=== PATIENT | male | born 1945 | race Caucasian/White ===

== ENCOUNTER 2017-03-04 21:49 | Emergency (ER) | payer OTHER ==
[2017-03-04 22:11] VITALS: BP 146/83; PULSE 68; TEMP 97.7; BMI 29.2
[2017-03-05] MEDS ORDERED: OXYCODONE/APAP 5/325MG COMBO TABLET PO ONE (00:12)
[2017-03-05] MEDS ORDERED: KETOROLAC TROMETHAMINE 30 MG/1 ML VIAL IM ONE (00:12)
--- NOTE | 2017-03-05 00:12 | PDOC ---
History of Present Illness - General History Source: Patient Exam Limitations: No Limitations - History of Present Illness Initial Comments: 03/05/17 00:37 The patient is a 71 year old male with significant history of hypertension, hyperlipidemia, CAD s/p stents, gout on Allopurinol, history of left elbow bursitis, who presents to the ED complaining of approximately 5 days of left elbow pain and swelling. His left elbow pain is burning and worse with movement. He denies any preceding trauma but does endorse lifting a large watermelon prior to the onset of his symptoms. He also complains of appproxiamtely 1 week of mild lower back pain after lifting a water melon. No fever or chills. NO cough, cp, sob, numnbess/tingling/weakness, urinary or bowel incontinence. No nausea, vomiting, or diarrhea. <Love Thorne - Last Filed: 03/05/17 00:37> <Alex Srivastava - Last Filed: 03/05/17 01:59> - General Chief Complaint: Pain Stated Complaint: LT ELBOW PAIN Time Seen by Provider: 03/04/17 23:39 Past History <Love Thorne - Last Filed: 03/05/17 00:37> - Past Medical History Cardiac Disorders: Yes Diabetes: Yes HTN: Yes - Surgical History Cardiac Surgery: Yes (stent x 4 20 years ago) - Psycho/Social/Smoking Cessation Hx Suicidal Ideation: No Smoking History: Never smoked <Alex Srivastava - Last Filed: 03/05/17 01:59> - Past Medical History Allergies/Adverse Reactions: Allergies Allergy/AdvReac Type Severity Reaction Status Date / Time No Known Allergies Allergy Verified 03/04/17 22:11 Home Medications: Ambulatory Orders Unobtainable [Unobtainable] 03/04/17 Review of Systems - Review of Systems Able to Perform ROS?: Yes Comments:: 03/05/17 00:38 CONSTITUTIONAL: No reported: Fever, Chills, Diaphoresis, Generalized Weakness, Malaise, Loss of Appetite HEENT: No reported: Rhinorrhea, Nasal Congestion, Throat Pain, Throat Swelling, Difficulty Swallowing, Mouth Swelling, Ear Pain, Eye Pain, Visual Changes CARDIOVASCULAR: No reported: Chest Pain, Syncope, Palpitations, Irregular Heart Rate, Lightheadedness, Peripheral Edema RESPIRATORY: No reported: Cough, Shortness of Breath, SOB with Exertion, Orthopnea, Wheezing , Stridor, Hemoptysis GASTROINTESTINAL: No reported: Abdominal pain, Abdominal Distension, Nausea, Vomiting, Diarrhea, Constipation, Melena, Hematochezia GENITOURINARY: No reported: Dysuria, Frequency, Urgency, Hesitancy, Flank Pain, Genital Pain MUSCULOSKELETAL: Reported: Left elbow pain, swelling. Back pain No reported: Myalgia, Neck Pain SKIN: No reported: Rash, Itching, Pallor HEMEATOLOGIC/IMMUNOLOGIC: No reported: Easy Bleeding, Easy Bruising, Lymphadenopathy, Frequent infections ENDOCRINE: No reported: Unexplained Weight Gain, Unexplained Weight Loss, Heat Intolerance , Cold Intolerance NEUROLOGIC: No reported: Headache, Focal Weakness, Paresthesias, Vertigo, Lightheadedness, Unsteady Gait, Seizure, Mental Status Changes, Incontinence PSYCHIATRIC: No reported: Anxiety, Depression <Love Thorne - Last Filed: 03/05/17 00:37> *Physical Exam - Vital Signs Last Vital Signs Temp Pulse Resp BP Pulse Ox 97.7 F 68 18 146/83 99 03/04/17 22:07 03/04/17 22:07 03/04/17 22:07 03/04/17 22:07 03/04/17 22:07 - Physical Exam Comments: 03/05/17 00:38 GENERAL: The patient is awake, alert, and fully oriented, Nontoxic - in no acute distress. HEAD: Normocephalic, atraumatic. EYES: extraocular movements intact, sclera anicteric, conjunctiva clear. ENT: Normal voice, Moist mucous membranes. NECK: Normal range of motion, supple LUNGS: Breath sounds equal, clear to auscultation bilaterally. No wheezes, no rhonchi, no rales. HEART: Regular rate and rhythm, normal S1 and S2 without murmur, rub or gallop. ABDOMEN: Soft, nontender, normoactive bowel sounds. No guarding, no rebound. . No CVA tenderness EXTREMITIES: ROM of L elbow approx 80 degrees before limited by pain, focal tenderness/swelling on L lolecranon/bursa. No warmth, erythema. BACK: No focal tenderness in midline or paraspinally. NEUROLOGICAL: No facial assymetry, Normal speech, PSYCH: Normal mood, normal affect. SKIN: Warm, Dry, normal turgor, <Herchek,Love - Last Filed: 03/05/17 00:37> - Vital Signs Last Vital Signs Temp Pulse Resp BP Pulse Ox 97.7 F 68 18 146/83 99 03/04/17 22:07 03/04/17 22:07 03/04/17 22:07 03/04/17 22:07 03/04/17 22:07 <Alex Srivastava - Last Filed: 03/05/17 01:59> ED Treatment Course - LABORATORY CBC & Chemistry Diagram: 03/05/17 00:10 03/05/17 00:10 - ADDITIONAL ORDERS Additional order review: 03/05/17 00:10 RBC 5.27 MCV 81.4 MCHC 31.8 L RDW 14.1 MPV 9.2 Neutrophils % 75.4 Lymphocytes % 15.3 Monocytes % 7.5 Eosinophils % 1.3 Basophils % 0.5 - Medications Given in the ED: ED Medications Discontinued Medications Generic Name Dose Route Start Last Admin Trade Name Carroll PRN Reason Stop Dose Admin Ketorolac Tromethamine 30 mg 03/05/17 00:12 03/05/17 00:25 Toradol Injection - IM 03/05/17 00:13 30 mg ONCE ONE Administration Oxycodone/Acetaminophen 1 combo 03/05/17 00:12 03/05/17 00:25 Percocet 5/325 - PO 03/05/17 00:13 1 combo ONCE ONE Administration <Love Thorne - Last Filed: 03/05/17 00:37> - LABORATORY CBC & Chemistry Diagram: 03/05/17 00:10 03/05/17 00:10 <Alex Srivastava - Last Filed: 03/05/17 01:59> Medical Decision Making - Medical Decision Making 03/05/17 00:01 71y M hx of htn, hl, cad with 4 stents, htn, dm, gout, presents with 5 days of worsening L atraumatic elbow pain and swelling, no associated fever/chills, vomiting, generalized weakness. on exam pt has focal tenderness to the R elbow without overlying erythema suspect bursitits but also consider gout will give NSAIDs, percocet doubt septic joint as pt able to range well A portion of this note was documented by scribe services under my direction. I have reviewed the details of the note, within reason, and agree with the documentation with the following case summary and management plan written by me 03/05/17 01:42 labs reviewed noted for mild leukocytis and borderline creatinine pt feeling improved will d/c the with pmd fu I discussed the physical exam findings, ancillary test results and final diagnoses with the patient. I answered all of the patient's questions. The patient was satisfied with the care received and felt comfortable with the discharge plan and treatment plan. The patient will call their primary care physician within 24 hours to arrange follow-up and will return to the Emergency Department with any new, persistent or worsening symptoms. <Alex Srivastava - Last Filed: 03/05/17 01:59> *DC/Admit/Observation/Transfer - Attestations Scribe Attestion: 03/05/17 00:38 Documentation prepared by Love Thorne, acting as medical diagnostic radiographer for Alex Srivastava MD. <Love Thorne - Last Filed: 03/05/17 00:37> - Discharge Dispostion Admit: No <Alex Srivastava - Last Filed: 03/05/17 01:59> Diagnosis at time of Disposition: Bursitis Qualifiers: Bursitis location: elbow Elbow bursitis location: olecranon bursitis Laterality : right Qualified Code(s): M70.21 - Olecranon bursitis, right elbow - Discharge Dispostion Disposition: HOME Condition at time of disposition: Improved - Referrals Referrals: Shirley Bartlett MD [Primary Care Provider] - Bartolome Palafox MD [Staff Physician] - - Patient Instructions Printed Discharge Instructions: DI for Bursitis Additional Instructions: Return to the emergency department immediately with ANY new, persistent or worsening symptoms including fever/chills, redness, swelling, woorsening pain or other concerns. Take tylenol for pain. You MUST call and follow up with your orthopedics in 3-4 days for further evaluation of your symptoms. Results were discussed with you. Please make sure your doctor reviews the results of your emergency evaluation. Print Language: PORTUGUESE
[2017-03-05 00:17] LABS: BASOPHIL 0.5 % (0-2.0); EOSINOPHIL 1.3 % (0-4.5); MCH 25.9 pg (25.7-33.7); MCHC 31.8 g/dl (32.0-35.9); MEAN CELL VOLUME 81.4 fl (80-96); MEAN PLT VOLUME 9.2 fl (7.5-11.1); NEUTROPHILS 75.4 % (42.8-82.8); PLATELET COUNT 193 K/MM3 (134-434); RDW 14.1 % (11.9-15.9); WHITE BLOOD COUNT 10.2 K/mm3 (4.0-10.0)
[2017-03-05] MEDS ORDERED: KETOROLAC TROMETHAMINE 15 MG/ML VIAL ONE (00:19)
[2017-03-05] MEDS ORDERED: OXYCODONE/APAP 5/325MG COMBO TABLET ONE (00:19)
[2017-03-05 00:42] LABS: ALBUMIN 3.9 g/dl (3.4-5.0); ANION GAP 10 (8-16); BILIRUBIN,TOTAL 0.6 mg/dL (0.2-1.0); CALCIUM 9.3 mg/dL (8.5-10.1); CO2 28 mmol/L (21-32); CREATININE 1.6 mg/dL (0.7-1.3); GLUCOSE,RANDOM 166 mg/dL (74-106); SGOT/AST 15 U/L (15-37); SGPT/ALT 31 U/L (12-78); TOT PROT 7.1 g/dl (6.4-8.2)
[2017-03-05 00:43] LABS: ALK PHOS 131 U/L (45-117)
== END 2017-03-05 02:05 | disposition home or self-care (01) ==
LOC: JER 21:49
PROC: 3E0233Z Introduction of Anti-inflammatory into Muscle, Percutaneous Approach (ICD-10-PCS; principal; 2017-03-04)
DX: M70.31 Other bursitis of elbow, right elbow (principal); I25.10 Atherosclerotic heart disease of native coronary artery without angina pectoris; I10 Essential (primary) hypertension; Z95.5 Presence of coronary angioplasty implant and graft; E78.00 Pure hypercholesterolemia, unspecified; M10.9 Gout, unspecified
CPT/HCPCS: 36415; 80053; 84550; 85025; 96372; 99282-25